=== PATIENT | female | born 1985 | race Caucasian/White ===

== ENCOUNTER → 2016-03-20 | Outpatient (CLI) | payer OTHER ==
[2016-03-20 17:28] LABS: Follicle Stimulating Hormone 4.9 mIU/mL; Prolactin 14.7 ng/mL (3.0-18.6)
--- NOTE | 2016-03-21 09:20 | US ---
EXAMINATION TYPE: US pelvic complete DATE OF EXAM: 03/20/2016 4:33 PM COMPARISON: NONE CLINICAL HISTORY: painful intercourse x 1 episode. Pelvic pain and dysfunctional uterine bleeding per order. TECHNIQUE: TA pelvic ultrasound. Date of LMP: 03/05/2016 EXAM MEASUREMENTS: Uterus: 8.3 x 5.0 x 3.7cm Endometrial Stripe: 0.6cm Right Ovary: 1.4 x 1.2 x 1.3cm Left Ovary: 2.6 x 1.8 x 2.9cm FINDINGS: TECHNOLOGIST IMPRESSION: 1. Uterus: Anteverted wnl 2. Endometrium: wnl, IUD seen in place 3. Right Ovary: wnl 4. Left Ovary: 1.7cm dominate follicle Metallic IUD is felt satisfactory in position centrally in the uterus. No free fluid is seen in pelvi c cul-de-sac. Endometrial stripe is not suspiciously thickened. Both ovaries are identified. There is 1.7 cm dominant follicle or simple small ovarian cyst in left o vary seen. There is no concerning solid or cystic extraovarian adnexal mass noted. IMPRESSION: No significant finding is seen to account for patient's symptoms.
== END | disposition home or self-care (01) ==
LOC: RADUSWWP 16:11
PROVIDERS: ATTEND Obstetrics & Gynecology
DX: R10.2 Pelvic and perineal pain (principal); N93.8 Other specified abnormal uterine and vaginal bleeding
CPT/HCPCS: 76856; 83001; 83002; 84146; 84443; 87491; 87591

== ENCOUNTER → 2017-09-11 | Outpatient (CLI) | payer OTHER ==
--- NOTE | 2017-09-11 11:56 | XR ---
Right hand and right wrist HISTORY: Numbness, pain and swelling 3 views of the right hand, 4 views of the right wrist. No comparisons No fracture or dislocation. Bone mineralization, joint spaces and alignment are maintained. IMPRESSION: No abnormality evident to account for patient's symptoms.
== END | disposition home or self-care (01) ==
LOC: RADXRMAIN 11:16
PROVIDERS: ATTEND Emergency Medicine
DX: M25.531 Pain in right wrist (principal); M79.641 Pain in right hand; M65.9 Synovitis and tenosynovitis, unspecified; R20.9 Unspecified disturbances of skin sensation

== ENCOUNTER 2017-11-22 15:35 | Emergency (ER) | payer OTHER ==
[2017-11-22 15:47] VITALS: BP 133/83; PULSE 80; RESP 18; TEMP 98.5
--- NOTE | 2017-11-22 17:10 | ED ---
General Adult HPI - General Chief complaint: Wound/Laceration Stated complaint: leg infection,cough 3 months Time Seen by Provider: 11/22/17 16:53 Source: patient, RN notes reviewed Mode of arrival: ambulatory Limitations: no limitations - History of Present Illness Initial comments: 31-year-old female presented to the emergency room today with chief complaint of a cut to the right side. 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 She states that she was worried as her was diagnosed with MRSA was make sure that this was not infected. Patient states that the area seems to be healing well. She denies any other complaints or symptoms. Patient denies any recent fever, chills, shortness of breath, chest pain, back pain, abdominal pain, nausea or vomiting, numbness or tingling, dysuria or hematuria, constipation or diarrhea, headaches or visual changes, or any other complaints. - Related Data Home Medications Medication Instructions Recorded Confirmed Ibuprofen [Motrin Ib] 400 mg PO Q8H PRN 11/22/17 11/22/17 Previous Rx's Medication Instructions Recorded Mupirocin 2% Oint [Bactroban Oint] 1 applic TOPICAL TID #1 gm 11/22/17 Allergies Allergy/AdvReac Type Severity Reaction Status Date / Time tramadol Allergy Unknown Verified 11/22/17 16:41 Review of Systems ROS Statement: Those systems with pertinent positive or pertinent negative responses have been documented in the HPI. ROS Other: All systems not noted in ROS Statement are negative. Past Medical History Past Medical History: No Reported History History of Any Multi-Drug Resistant Organisms: None Reported Past Surgical History: Adenoidectomy, Tonsillectomy Additional Past Surgical History / Comment(s): leep procedure Past Anesthesia/Blood Transfusion Reactions: No Reported Reaction Past Psychological History: Anxiety, Depression Smoking Status: Current every day smoker Past Alcohol Use History: None Reported Past Drug Use History: None Reported - Past Family History Father Family Medical History: Cancer Additional Family Medical History / Comment(s): colon cancer General Exam - General Exam Comments Initial Comments: General: The patient is awake and alert, in no distress, and does not appear acutely ill. Eye: Extra-ocular movements are intact. No nystagmus. There is normal conjunctiva bilaterally. No signs of icterus. Ears, nose, mouth and throat: There are moist mucous membranes and no oral lesions. Neck: The neck is supple, there is no tenderness or JVD. Musculoskeletal: Normal ROM, no tenderness. Sensation intact. Strength 5/5. Pulses equal bilaterally 2+. Neurological: A&O x 3. CN II-XII intact, There are no obvious motor or sensory deficits. Coordination appears grossly intact. Speech is normal. Skin: Facial laceration to the right thigh measures approximately 1 cm. There is some mild local redness. No fluctuant area. No drainage. Psychiatric: Cooperative, appropriate mood & affect, normal judgment. Limitations: no limitations Course Vital Signs 11/22/17 15:44 Temperature 98.5 F Pulse Rate 80 Respiratory 18 Rate Blood Pressure 133/83 O2 Sat by Pulse 98 Oximetry Medical Decision Making - Medical Decision Making The patient will be given a prescription for topical antibiotic. Advised to continue to watch area return here to the emergency room symptoms increase worsen or for any other concerns Disposition Clinical Impression: Laceration Disposition: HOME SELF-CARE Condition: Good Instructions: Laceration (ED) Additional Instructions: Please use medication as discussed. Please follow-up with family doctor in the next 2 days of symptoms have not improved. Please return to emergency room if the symptoms increase or worsen or for any other concerns. Prescriptions: Mupirocin 2% Oint [Bactroban Oint] 1 applic TOPICAL TID #1 gm Is patient prescribed a controlled substance at d/c from ED?: No Referrals: None,Stated [Primary Care Provider] - 1-2 days Time of Disposition: 17:09
== END 2017-11-22 17:14 | disposition home or self-care (01) ==
LOC: EC 15:35
DX: S71.111A Laceration without foreign body, right thigh, initial encounter (principal); F17.200 Nicotine dependence, unspecified, uncomplicated; Z88.5 Allergy status to narcotic agent; W26.0XXA Contact with knife, initial encounter
CPT/HCPCS: 99282

== ENCOUNTER 2019-02-25 03:40 | Emergency (ER) | payer OTHER ==
[2019-02-25 03:56] VITALS: BP 123/83; PULSE 89; RESP 18; TEMP 98.1
--- NOTE | 2019-02-25 04:20 | ED ---
Lower Extremity Injury HPI - General Chief Complaint: Extremity Injury, Lower Stated Complaint: L Foot Pain Time Seen by Provider: 02/25/19 04:01 Source: patient Mode of arrival: wheelchair Limitations: no limitations - History of Present Illness Initial Comments: Harper is a healthy 33-year-old female who reports she was wrestling with her nephews earlier in the evening, when she went to bed she began having aching pain in her ankle decided to come to the ER. Patient states she took ibuprofen prior to coming to ER and upon arrival after getting to the room she reports reports feeling much better she actually doesn't feel like she needs x-ray she can ambulate on her foot and is ready for discharge. She denies other injury. Denies previous injury to this foot. - Related Data Home Medications Medication Instructions Recorded Confirmed Ibuprofen [Motrin Ib] 400 mg PO Q8H PRN 11/22/17 11/22/17 Previous Rx's Medication Instructions Recorded Mupirocin 2% Oint [Bactroban Oint] 1 applic TOPICAL TID #1 gm 11/22/17 Allergies Allergy/AdvReac Type Severity Reaction Status Date / Time tramadol Allergy Unknown Verified 02/25/19 03:53 Review of Systems ROS Statement: Those systems with pertinent positive or pertinent negative responses have been documented in the HPI. ROS Other: All systems not noted in ROS Statement are negative. Past Medical History Past Medical History: No Reported History History of Any Multi-Drug Resistant Organisms: None Reported Past Surgical History: Adenoidectomy, Tonsillectomy Additional Past Surgical History / Comment(s): leep procedure Past Anesthesia/Blood Transfusion Reactions: No Reported Reaction Past Psychological History: Anxiety, Depression Smoking Status: Current every day smoker Past Alcohol Use History: None Reported Past Drug Use History: None Reported - Past Family History Father Family Medical History: Cancer Additional Family Medical History / Comment(s): colon cancer General Exam - General Exam Comments Initial Comments: Physical Exam GENERAL: Patient is well-developed and well-nourished. Patient is nontoxic and well-hydrated and is in no distress. HENT: Normocephalic, Atraumatic. EYES: PERRL, EOMI PULMONARY: Unlabored respirations. CARDIOVASCULAR: RRR Warm and well perfused extremities ABDOMEN: Non-distended SKIN: No rashes or bruising : Deferred NEUROLOGIC: Alert and oriented Normal speech Normal gait MUSCULOSKELETAL: Moving all extremities with no apparent injury No obvious deformity of the ankle, mild effusion over the anterior talofibular PSYCHIATRIC: No SI/HI Limitations: no limitations Course Vital Signs 02/25/19 03:53 Temperature 98.1 F Pulse Rate 89 Respiratory 18 Rate Blood Pressure 123/83 O2 Sat by Pulse 98 Oximetry Medical Decision Making - Medical Decision Making Patient was seen and evaluated immediately upon my evaluation patient was requesting discharge stating that her pain has actually resolved and she doesn't feel she needs evaluation. Physical exam reveals no obvious injury. Only mild swelling. No bruising no bony tenderness. Patient medically cleared for discharge home with supportive care. Disposition Clinical Impression: Pain in left foot Disposition: HOME SELF-CARE Condition: Stable Instructions (If sedation given, give patient instructions): Foot Sprain (ED) Is patient prescribed a controlled substance at d/c from ED?: No Referrals: None,Stated [Primary Care Provider] - 1-2 days
== END 2019-02-25 04:25 | disposition home or self-care (01) ==
LOC: EC 03:40
DX: M79.672 Pain in left foot (principal); M25.472 Effusion, left ankle; F17.200 Nicotine dependence, unspecified, uncomplicated; Z88.5 Allergy status to narcotic agent; Y93.72 Activity, wrestling; Y92.009 Unspecified place in unspecified non-institutional (private) residence as the place of occurrence of the external cause
CPT/HCPCS: 99283

== ENCOUNTER 2020-03-31 07:47 | Day surgery (SDC) | payer OTHER ==
[2020-03-25 16:16] VITALS: BMI 24.1
--- NOTE | 2020-03-29 16:58 | P.HPOB ---
History of Present Illness H&P Date: 03/29/20 Chief Complaint: Family planning Harper is a 34-year-old female clear and her family planning and desires permanent sterilization. She has previously failed IUD and is not doing well taking oral contraceptive pills therefore she is desiring permanent sterilization. Risks/benefits/alternatives to this procedure were reviewed with the patient in detail and all questions were answered for her prior to proceeding to the operating room. Risks did include but were not limited to bleeding and infection damage to bladder or bowel or vascular injuries nerve damage. She is aware that this is a permanent procedure and not designed to be reversed she is also aware of a small failure rate of approximately 4 per thousand. All the questions are answered for her prior to proceeding to the operative room. Past Medical History Past Medical History: No Reported History Additional Past Medical History / Comment(s): OCCASIONAL ANEMIA History of Any Multi-Drug Resistant Organisms: None Reported Past Surgical History: Adenoidectomy, Tonsillectomy Additional Past Surgical History / Comment(s): leep procedure Past Anesthesia/Blood Transfusion Reactions: No Reported Reaction Past Psychological History: Anxiety, Depression Smoking Status: Current every day smoker Past Alcohol Use History: None Reported Additional Past Alcohol Use History / Comment(s): SMOKES 1/2 TO 1 PPD, STARTED SMOKING AGE 12. Past Drug Use History: None Reported - Past Family History Father Family Medical History: Cancer Additional Family Medical History / Comment(s): colon cancer Medications and Allergies Home Medications Medication Instructions Recorded Confirmed Type Ibuprofen [Motrin Ib] 400 mg PO DIRECTED PRN 11/22/17 03/25/20 History Citalopram Hydrobromide [CeleXA] 20 mg PO HS 03/25/20 03/25/20 History LORazepam [Ativan] 0.5 mg PO DAILY PRN 03/25/20 03/25/20 History Allergies Allergy/AdvReac Type Severity Reaction Status Date / Time tramadol Allergy TREMORS Verified 03/25/20 15:50 Exam Osteopathic Statement: *. No significant issues noted on an osteopathic structural exam other than those noted in the History and Physical/Consult. - OBG Physical Exam Breast: both: normal (no masses) Abdomen: bowel sounds normal, no diffuse tenderness, no bruit present, no guarding noted, no hepatomegaly, no splenomegaly, no mass Vulva: both: normal Vagina: normal moisture, no discharge Cervix: no lesion, no discharge Uterus: normal size, normal contour Adnexa: both: normal Anus/Rectum: normal perianal skin, no rectal mass, no hemorrhoids, heme negative
[~2020-03-31 07:47] MED LIST: DEXAMETHASONE SOD PHOSPHATE 4 MG/ML 1 ML VIAL IV ONE; HYDROmorphone 0.5 MG/0.5 ML SYRINGE IVP PRN; LACTATED RINGERS 1,000 ML IV SCH; LIDOCAINE 1% (10MG/ML) FOR IV START INTRADERMA PRN; ONDANSETRON 4 MG/2 ML VIAL IVP ONE; Pre Op ABX Message 1 EACH MISC MISCELLANE ONE; SCOPOLAMINE 1.5MG/72HR PATCH TRANSDERM ONE
[2020-03-31] MEDS ORDERED: BUPIVACAINE (PF) 0.25% 30 ML VIAL SQ ONE ×3 (09:54→10:21)
[2020-03-31] MEDS ORDERED: PROPOFOL 10 MG/ML 20 ML VIAL IV ONE (09:58)
[2020-03-31] MEDS ORDERED: MIDAZOLAM 2 MG/2 ML VIAL ONE (09:58)
[2020-03-31] MEDS ORDERED: NEOSTIGMINE 1 MG/ML 10 ML VIAL ONE (09:58)
[2020-03-31] MEDS ORDERED: GLYCOPYRROLATE 0.2 MG/ML 2 ML VIAL ONE (09:58)
[2020-03-31] MEDS ORDERED: LIDOCAINE 1% INJ 10MG/ML (20 ML MDV) ONE (09:58)
[2020-03-31] MEDS ORDERED: SUCCINYLCHOLINE CHLORIDE 100 MG/5 ML SYR IV ONE (09:58)
[2020-03-31] MEDS ORDERED: ROCURONIUM 10 MG/ML (10 ML VIAL) IV ONE (09:58)
[2020-03-31] MEDS ORDERED: KETOROLAC 15 MG/ML 1 ML VIAL ONE (09:58)
[2020-03-31] MEDS ORDERED: HYDROmorphone (PF) 1 MG/ML ONE (09:58)
[2020-03-31] MEDS ORDERED: fentaNYL (PF) 50 MCG/ML 2 ML AMP ONE (09:58)
[2020-03-31 10:46] VITALS: TEMP 98
--- NOTE | 2020-03-31 11:12 | P.OP ---
Date of Procedure: 03/31/20 Preoperative Diagnosis: Family planning Postoperative Diagnosis: Same Procedure(s) Performed: Laparoscopic tubal occlusion with Filshie clips Anesthesia: JUAN Surgeon: Carlos Ortega Estimated Blood Loss (ml): 5 IV fluids (ml): 400 Urine output (ml): 30 Pathology: none sent Condition: stable Disposition: same day Operative Findings: Normal pelvic anatomy Description of Procedure: Patient was taken to the operating suite where general anesthetic was found be adequate. She was prepped and draped in the normal sterile fashion and placed in dorsal lithotomy position. Initially a speculum was inserted into the vagina and the anterior lip of the cervix identified and grasped with an [place] tooth tenaculum. [place]ia manipulator was then inserted without difficulty and red rubber catheters used to drain the bladder of urine. Vaginal history is otherwise were then removed and attention was turned to abdominal portion procedure where 2 mL of quarter percent Marcaine was injected periumbilically. Through this injected anesthetic a 5 mm skin incision was made and through this incision, under direct visualization with an optical trocar and sleeve, the camera was inserted. Once peritoneal placement was assured gas was left fully insufflate the abdomen and patient's placement steep Trendelenburg position. A second port and sleeve were then inserted through an 8 mm skin incision 3 cm above the pubic symphysis in the midline. Through this incision a port and sleeve were inserted and observations the pelvis were noted. Uterus was then elevated fallopian tubes identified and Filshie clips applied 2 cm from uterine cornu. First on the right and the left. No bleeding is noted in the mesosalpinx therefore instruments are removed and gas was allowed to expel from the abdomen. 5 deep breaths were provided during this process. 4-0 Vicryl was then used to close incision subcuticularly and the remaining 8 mL of quarter percent Marcaine was injected around these incisions. Incidents removed from the vagina. Sponge, lap, needle counts were correct 2. Patient was then taken to the recovery room in stable and satisfactory condition. Plan - Discharge Summary Discharge Rx Participant: Yes New Discharge Prescriptions: New Ibuprofen [Motrin] 600 mg PO Q6HR PRN #30 tab PRN Reason: Pain HYDROcodone/APAP 5-325MG [[place] 5-325] 1 tab PO Q4HR PRN #20 tab PRN Reason: Pain No Action Ibuprofen [Motrin Ib] 400 mg PO DIRECTED PRN PRN Reason: Pain LORazepam [Ativan] 0.5 mg PO DAILY PRN PRN Reason: Anxiety Citalopram Hydrobromide [CeleXA] 20 mg PO HS Discharge Medication List Ibuprofen [Motrin Ib] 400 mg PO DIRECTED PRN 11/22/17 [History] Citalopram Hydrobromide [CeleXA] 20 mg PO HS 03/25/20 [History] LORazepam [Ativan] 0.5 mg PO DAILY PRN 03/25/20 [History] HYDROcodone/APAP 5-325MG [[place] 5-325] 1 tab PO Q4HR PRN #20 tab 03/31/20 [Rx] Ibuprofen [Motrin] 600 mg PO Q6HR PRN #30 tab 03/31/20 [Rx] Follow up Appointment(s)/Referral(s): Carlos Ortega DO [Doctor of Osteopathic Medicine] - 2 Weeks Activity/Diet/Wound Care/Special Instructions: No heavy lifting, limit stairs and driving, And pelvic rest. No baths for 2 weeks, showering is fine If any high temperatures, heavy bleeding, or severe pain call my office Discharge Disposition: HOME SELF-CARE
[2020-03-31] MEDS ORDERED: LACTATED RINGERS 1,000 ML IV ONE (11:20)
[2020-03-31 12:24] VITALS: RESP 16
[2020-03-31] MEDS ORDERED: HYDROcodone/APAP 5-325MG 1 EACH TAB ONE (13:13)
[2020-03-31] MEDS ORDERED: HYDROcodone/APAP 5-325MG 1 EACH TAB PO ONE (13:15)
[2020-03-31 13:32] VITALS: BP 128/60; PULSE 50
== END 2020-03-31 14:08 | disposition home or self-care (01) ==
LOC: OR 07:47
PROVIDERS: ATTEND Obstetrics & Gynecology
DX: Z30.2 Encounter for sterilization (principal); Z86.2 Personal history of diseases of the blood and blood-forming organs and certain disorders involving the immune mechanism; Z90.89 Acquired absence of other organs; Z98.890 Other specified postprocedural states; F41.9 Anxiety disorder, unspecified; F32.9 Major depressive disorder, single episode, unspecified; F17.210 Nicotine dependence, cigarettes, uncomplicated; Z79.899 Other long term (current) drug therapy; Z88.5 Allergy status to narcotic agent
CPT/HCPCS: 81025; 58671; J2250; J1100; J2710; J2405; J2001; J3010; J1170; J1885; J0330; J2704

== ENCOUNTER 2020-11-05 18:02 | Emergency (ER) | payer OTHER ==
[2020-11-05 18:26] VITALS: RESP 18
[2020-11-05] MEDS ORDERED: IBUPROFEN 600 MG TAB PO STA (18:42)
--- NOTE | 2020-11-05 19:08 | XR ---
EXAMINATION TYPE: XR foot complete LT DATE OF EXAM: 11/05/2020 COMPARISON: NONE HISTORY: Fell down the stairs. Pain. TECHNIQUE: 3 views FINDINGS: Metatarsals are intact. Toes appear intact. I see no fracture nor dislocation. Joint spaces are fairly normal. IMPRESSION: Negative left foot exam.
--- NOTE | 2020-11-05 19:10 | XR ---
EXAMINATION TYPE: XR ankle complete LT DATE OF EXAM: 11/05/2020 COMPARISON: None HISTORY: Pain TECHNIQUE: 3 views FINDINGS: Ankle mortise is anatomic. I see no fracture nor dislocation. Joint spaces are normal. IMPRESSION: Normal left ankle.
[2020-11-05 19:16] VITALS: BP 131/86; PULSE 64; TEMP 98.4
--- NOTE | 2020-11-05 19:19 | ED ---
Lower Extremity Injury HPI - General Chief Complaint: Extremity Injury, Lower Stated Complaint: Left ankle injury Time Seen by Provider: 11/05/20 18:39 Source: patient Mode of arrival: wheelchair Limitations: no limitations - History of Present Illness Initial Comments: Patient is a 34-year-old female presenting to the emergency Department with complaints of left ankle pain for the past 3 days. She states she was going down her stairs when she missed the last step and landed wrong on her left ankle, she states it twisted inward. She is been noticing increase in bruising and swelling and wants to make sure she didn't fracture. She has no history of previous fractures or surgeries of her left ankle or foot. She has no further complaints from the fall. - Related Data Home Medications Medication Instructions Recorded Confirmed Ibuprofen [Motrin Ib] 400 mg PO DIRECTED PRN 11/22/17 03/25/20 Citalopram Hydrobromide [CeleXA] 20 mg PO HS 03/25/20 03/25/20 LORazepam [Ativan] 0.5 mg PO DAILY PRN 03/25/20 03/25/20 Previous Rx's Medication Instructions Recorded HYDROcodone/APAP 5-325MG [[place] 1 tab PO Q4HR PRN #20 tab 03/31/20 5-325] Ibuprofen [Motrin] 600 mg PO Q6HR PRN #30 tab 03/31/20 Allergies Allergy/AdvReac Type Severity Reaction Status Date / Time tramadol Allergy TREMORS Verified 11/05/20 18:25 Review of Systems ROS Statement: Those systems with pertinent positive or pertinent negative responses have been documented in the HPI. ROS Other: All systems not noted in ROS Statement are negative. Past Medical History Past Medical History: No Reported History Additional Past Medical History / Comment(s): OCCASIONAL ANEMIA History of Any Multi-Drug Resistant Organisms: None Reported Past Surgical History: Adenoidectomy, Tonsillectomy Additional Past Surgical History / Comment(s): leep procedure Past Anesthesia/Blood Transfusion Reactions: No Reported Reaction Past Psychological History: Anxiety, Depression Smoking Status: Current every day smoker Past Alcohol Use History: None Reported Past Drug Use History: None Reported - Past Family History Father Family Medical History: Cancer Additional Family Medical History / Comment(s): colon cancer General Exam - General Exam Comments Initial Comments: GENERAL: Patient is well-developed and well-nourished. Patient is nontoxic and in no acu te distress. HEAD: Atraumatic, normocephalic. EYES: Pupils equal round and reactive to light, extraocular movements intact, sclera anicteric, conjunctiva are normal. Eyelids were unremarkable. ENT: Moist mucous membranes. NECK: Normal range of motion, supple without lymphadenopathy or JVD. LUNGS: Unlabored respirations. Breath sounds clear to auscultation bilaterally and equal. No wheezes rales or rhonchi. HEART: Regular rate and rhythm without murmurs, rubs or gallops. MUSCULOSKELETAL: Patient has some tenderness along the medial and lateral malleolus, she does have some decreased active range of motion secondary to pain. She does have some bruising present along the medial and lateral aspect of the ankle. She is neurovascular intact. No pain of the left distal foot. No clubbing or cyanosis. NEUROLOGICAL: Patient is alert and oriented x 3. PSYCH: Normal mood, normal affect. SKIN: Warm, Dry, normal turgor, no rashes or lesions noted. Limitations: no limitations Course Vital Signs 11/05/20 11/05/20 18:25 19:14 Temperature 98.1 F 98.4 F Pulse Rate 77 64 Respiratory 18 18 Rate Blood Pressure 120/78 131/86 O2 Sat by Pulse 99 97 Oximetry Medical Decision Making - Medical Decision Making Patient is a 34-year-old female here with left ankle pain after she missed the last step of her stairs 3 days ago. She continued to have bruising and swelling and wanted an x-ray. Her x-ray is negative today for any acute fracture dislocations of the left foot or ankle. I discussed with her this is a moderate sprain. She has an Mihir wrap for support and has been using crutches as needed. I recommended ibuprofen. She is stable for discharge. She is agreeable to this plan of care. Disposition Clinical Impression: Moderate left ankle sprain Disposition: HOME SELF-CARE Condition: Stable Instructions (If sedation given, give patient instructions): Ankle Sprain (ED) Additional Instructions: Please return to the Emergency Department if symptoms worsen or any other concerns. Continue to use Mihir wrap for compression, ibuprofen for pain relief. Also apply ice to the area. Is patient prescribed a controlled substance at d/c from ED?: No Referrals: Blayne Pineda MD [Primary Care Provider] - 1-2 days Time of Disposition: 19:22
== END 2020-11-05 20:08 | disposition home or self-care (01) ==
LOC: EC 18:02
DX: S93.402A Sprain of unspecified ligament of left ankle, initial encounter (principal); F32.9 Major depressive disorder, single episode, unspecified; F41.9 Anxiety disorder, unspecified; F17.200 Nicotine dependence, unspecified, uncomplicated; Z79.1 Long term (current) use of non-steroidal anti-inflammatories (NSAID); Z79.899 Other long term (current) drug therapy; Z88.5 Allergy status to narcotic agent; Z88.8 Allergy status to other drugs, medicaments and biological substances; W10.9XXA Fall (on) (from) unspecified stairs and steps, initial encounter
CPT/HCPCS: 99284

== ENCOUNTER → 2021-11-09 | Outpatient (CLI) | payer OTHER ==
[2021-11-09 23:29] LABS: HCT 42.1 % (37.2-46.3); HGB 13.7 g/dL (12.0-15.0); MCH 32.9 pg (27.0-32.0); MCHC 32.5 g/dL (32.0-37.0); Mean Platelet Volume 12.9 fL (9.5-12.2); NRBC Per 100 WBC 0 /100 WBCS (0.0-0.0); Platelet Count 253 X 10*3/uL (140-440); RBC 4.17 X 10*6/uL (4.10-5.20); RDW 12.4 % (11.5-14.5)
[2021-11-10 00:55] LABS: ALT 17 U/L (8-44); AST 21 U/L (13-35); African American GFR (CKD) 84.8 (60.0-200.0); Albumin 4.5 g/dL (3.8-4.9); Albumin/Globulin Ratio 1.87 (1.60-3.17); Alkaline Phosphatase 80 U/L (41-126); BUN/Creat Ratio 12.17 Ratio (12.00-20.00); Calcium 10.3 mg/dL (8.7-10.3); Carbon Dioxide 28.5 mmol/L (20.0-27.5); Chloride 102 mmol/L (96-109); Globulin 2.4 g/dL (1.6-3.3); Glucose 65 mg/dL (70-110); Non-African American GFR(CKD) 73.2 (60.0-200.0); Potassium 4.7 mmol/L (3.5-5.5); Sodium 143 mmol/L (135-145); Total Bilirubin <0.15 mg/dL (0.30-1.20); Total Protein 6.8 g/dL (6.2-8.2)
== END | disposition home or self-care (01) ==
LOC: LABWHC1 15:15
PROVIDERS: ATTEND Internal Medicine
DX: B37.0 Candidal stomatitis (principal)
CPT/HCPCS: 36415; 80053; 84443; 85027